=== PATIENT | female | born 1995 | race Hispanic/Latino ===

== ENCOUNTER 2017-08-28 22:18 | Emergency (ER) | payer OTHER ==
[2017-08-28] MEDS ORDERED: NA CHLORIDE 0.9% 1,000 ML ONE ×2 (22:48→23:01)
[2017-08-28 23:04] LABS: Absolute Lymphocytes (CBC) 3.8 K/uL (0.7-4.9); Absolute Monocytes 0.5 K/uL (0.1-1.3); Absolute Neutrophil 3.9 K/uL (1.8-8.0); Basophils % 0.4 % (0-1.3); Eosinophils % 1.4 % (0-4.4); Lymphocytes % 45.8 % (15.3-44.8); MCH 27.1 pg (27.0-35.0); MCV 80.5 fL (80-100); MPV 9.3 fL (7.6-11.3); Monocytes % 5.5 % (3.3-12.3); RBC Red Blood Cell Count 4.85 M/uL (3.86-4.86)
[2017-08-28 23:11] LABS: Bicarbonate 28 mEq/L (21-31); Glucose Level 102 mg/dL (65-120); Lipase 30 U/L (22-51); Potassium 3.7 mEq/L (3.6-5.0); Sodium Level 139 mEq/L (135-145)
[2017-08-28 23:18] LABS: ALT/SGPT 45 IU/L (10-60); AST/SGOT 32 IU/L (10-42); Albumin 4.2 g/dL (3.2-5.5); Alkaline Phosphatase 63 IU/L (42-121); Amylase Level 43 U/L (28-100); BUN Blood Urea Nitrogen 10 mg/dL (6-20); Bilirubin Direct < 0.1 mg/dL (0-0.2); Bilirubin Total 0.5 mg/dL (0.3-1.2); Protein, Total 7.6 g/dL (6.0-8.3)
[2017-08-28] MEDS ORDERED: ONDANSETRON 4 MG/2 ML VIAL ONE (23:19)
[2017-08-29 00:08] LABS: Urine Blood NEGATIVE (NEG); Urine Glucose NEGATIVE (NEG); Urine Protein NEGATIVE (NEG); Urine Specific Gravity 1.015 (1.005-1.030)
[2017-08-29 00:13] LABS: Urine Bacteria <20 /HPF (<20); Urine Culture Reflex Order NOT NEEDED; Urine RBC NONE SEEN /HPF (NONE SEEN)
--- NOTE | 2017-08-29 01:14 | EDPHYS ---
Physician Documentation [facility] Name: Valerie Murphy Age: 22 yrs Sex: Female : 1995 Arrival Date: 08/28/2017 Time: 22:19 Bed 6 Private MD: ED Physician Twin Moy HPI: 08/28 22:41 This 22 yrs old Female presents to ER via Ambulatory with complaints of pkl Abdominal Pain, Shortness Of Breath. 22:41 The patient presents with abdominal pain in the upper abdomen. Onset: The pkl symptoms/episode began/occurred 1 week(s) ago. The symptoms do not radiate. Associated signs and symptoms: Pertinent positives: chest pain, shortness of breath. Historical: - Allergies: 22:35 No Known Allergies; mg2 - Home Meds: 22:35 Albuterol Inhl [Active]; mg2 - PMHx: 22:35 Asthma; ADD/ADHD; mg2 - PSHx: 22:35 Tonsillectomy; mg2 - Immunization history:: Flu vaccine is not up to date. - Social history:: Smoking status: Patient/guardian denies using tobacco, Patient/guardian denies using alcohol, street drugs, IV drugs. - Ebola Screening: : No symptoms or risks identified at this time. ROS: 22:41 Eyes: Negative for injury, pain, redness, and discharge, ENT: Negative for injury, pkl pain, and discharge, Neck: Negative for injury, pain, and swelling. 22:41 Cardiovascular: Positive for chest pain. 22:41 Respiratory: Positive for shortness of breath. 22:41 Abdomen/GI: Positive for abdominal pain, Negative for abdominal pain, nausea, vomiting, and diarrhea. 22:41 Back: Negative for acute changes. 22:41 : Negative for urinary symptoms. 22:41 MS/extremity: Negative for acute changes. 22:41 Skin: Negative for rash. 22:41 Neuro: Negative for altered mental status. Exam: 22:41 Head/Face: Normocephalic, atraumatic. Eyes: Pupils equal round and reactive to light, pkl extra-ocular motions intact. Lids and lashes normal. Conjunctiva and sclera are non-icteric and not injected. Cornea within normal limits. Periorbital areas with no swelling, redness, or edema. ENT: Nares patent. No nasal discharge, no septal abnormalities noted. Tympanic membranes are normal and external auditory canals are clear. Oropharynx with no redness, swelling, or masses, exudates, or evidence of obstruction, uvula midline. Mucous membranes moist. Neck: Trachea midline, no thyromegaly or masses palpated, and no cervical lymphadenopathy. Supple, full range of motion without nuchal rigidity, or vertebral point tenderness. No Meningismus. Chest/axilla: Normal chest wall appearance and motion. Nontender with no deformity. No lesions are appreciated. Cardiovascular: Regular rate and rhythm with a normal S1 and S2. No gallops, murmurs, or rubs. Normal PMI, no JVD. No pulse deficits. Respiratory: Lungs have equal breath sounds bilaterally, clear to auscultation and percussion. No rales, rhonchi or wheezes noted. No increased work of breathing, no retractions or nasal flaring. 22:41 Abdomen/GI: Bowel sounds: normal, Palpation: soft, mild abdominal tenderness, in the right upper quadrant and left upper quadrant. 22:41 Back: Exam negative for acute changes. 22:41 : Exam negative for acute changes. 22:41 Musculoskeletal/extremity: Exam is negative for acute changes. 22:41 Skin: Exam negative for rash. 22:41 Neuro: Orientation: is normal, Mentation: is normal, Cranial nerves: grossly normal, Motor: is normal. Vital Signs: 22:36 BP 127 / 96; Pulse 88; Resp 18; Temp 97.1(O); Pulse Ox 98% on R/A; Weight 68.04 kg; mg2 Height 4 ft. 10 in. (147.32 cm); Pain 7/10; 23:35 BP 128 / 94; Pulse 82; Resp 16; Pulse Ox 99% on R/A; ao 08/29 01:00 BP 124 / 88; Pulse 72; Resp 18; Pulse Ox 100% ; ao 08/28 22:36 Body Mass Index 31.35 (68.04 kg, 147.32 cm) mg2 MDM: 08/28 22:35 Patient medically screened. pkl 08/29 01:13 Data reviewed: vital signs, nurses notes, lab test result(s), radiologic studies, CT pkl scan. 08/28 22:39 Order name: Amylase, Serum; Complete Time: 23:27 pkl 08/28 22:39 Order name: Basic Metabolic Panel; Complete Time: 23:27 pkl 08/28 22:39 Order name: CBC with Diff; Complete Time: 23:27 pkl 08/28 22:39 Order name: Creatinine for Radiology; Complete Time: 23:27 pkl 08/28 22:39 Order name: Hepatic Function; Complete Time: 23:27 pkl 08/28 22:39 Order name: Lipase; Complete Time: 23:27 pkl 08/28 22:39 Order name: Urine Microscopic Only; Complete Time: 01:11 pkl 08/28 22:39 Order name: IV Saline Lock; Complete Time: 22:54 pkl 08/28 22:39 Order name: Labs collected and sent; Complete Time: 22:54 pkl 08/28 23:05 Order name: Urine Dipstick--Ancillary (enter results) ms 08/28 23:05 Order name: Urine --Ancillary (enter results) ms 08/28 23:52 Order name: Chest Abdomen Pelvis W Cont [facility] 08/28 22:39 Order name: Urine Dipstick-Ancillary (obtain specimen); Complete Time: 23:34 pkl Administered Medications: 08/28 23:17 Drug: NS 0.9% 1000 ml Route: IV; Rate: 125 ml/hr; Site: right antecubital; mg2 Disposition: 08/29/17 01:14 Discharged to Home. Impression: Chest pain. Abdominal pain. - Condition is Stable. - Prescriptions for Protonix 40 mg Oral Tablet, Delayed Release (E.C.) - take 1 tablet by ORAL route once daily; 15 tablet. - Work release form, Medication Reconciliation Form, Thank You Letter, Antibiotic Education, Prescription Opioid Use form. - Follow up: Private Physician; When: 2 - 3 days; Reason: Re-evaluation by your physician. - Problem is new. - Symptoms have improved. Signatures: Dispatcher [employer] [facility] Twin Moy MD MD pkCarlos Rose RN RN Jordy Humphreys RN RN mg2 Corrections: (The following items were deleted from the chart) 23:52 23:29 Chest Abdomen W/ Con+CT.RAD.BRZ ordered. [facility] 08/29 01:29 01:14 08/29/2017 01:14 Discharged to Home. Impression: Chest pain. Abdominal pain. ao Condition is Stable. Forms are Medication Reconciliation Form, Thank You Letter, Antibiotic Education, Prescription Opioid Use. Follow up: Private Physician; When: 2 - 3 days; Reason: Re-evaluation by your physician. Problem is new. Symptoms have improved. pkl
--- NOTE | 2017-08-29 01:14 | ER ---
Nurse's Notes [facility] Name: Valerie Murphy Age: 22 yrs Sex: Female : 1995 Arrival Date: 08/28/2017 Time: 22:19 Bed 6 Private MD: Diagnosis: Chest pain. Abdominal pain Presentation: 08/28 22:32 Presenting complaint: Patient states: she has abdominal pain and orthopnea for 1 week. mg2 [facility] [address] in [place] previously and was prescribed some pain medications. She has been nauseous but denies vomiting. Transition of care: patient was not received from another setting of care. Onset of symptoms was August 2017. Risk Assessment: Do you want to hurt yourself or someone else? Patient reports no desire to harm self or others. Initial Sepsis Screen: Does the patient meet any 2 criteria? No. Patient's initial sepsis screen is negative. Does the patient have a suspected source of infection? No. Patient's initial sepsis screen is negative. Care prior to arrival: None. 22:32 Method Of Arrival: Ambulatory mg2 22:32 Acuity: YESI 3 mg2 Historical: - Allergies: 22:35 No Known Allergies; mg2 - Home Meds: 22:35 Albuterol Inhl [Active]; mg2 - PMHx: 22:35 Asthma; ADD/ADHD; mg2 - PSHx: 22:35 Tonsillectomy; mg2 - Immunization history:: Flu vaccine is not up to date. - Social history:: Smoking status: Patient/guardian denies using tobacco, Patient/guardian denies using alcohol, street drugs, IV drugs. - Ebola Screening: : No symptoms or risks identified at this time. Screenin:39 Abuse screen: Denies threats or abuse. Denies injuries from another. Nutritional mg2 screening: On. Tuberculosis screening: No symptoms or risk factors identified. Fall Risk None identified. Assessment: 22:37 General: Appears in no apparent distress. comfortable, Behavior is calm, cooperative. mg2 Pain: Complains of pain in left lower quadrant and epigastric Pain does not radiate. Pain currently is 7 out of 10 on a pain scale. Quality of pain is described as aching, Pain began gradually, 1 week ago Is intermittent. Neuro: Level of Consciousness is awake, alert, obeys commands, Oriented to person, place, time. Cardiovascular: Capillary refill < 3 seconds Patient's skin is warm and dry. Respiratory: Airway is patent Respiratory effort is even, unlabored, Respiratory pattern is regular, symmetrical. GI: Abdomen is non-distended, Reports lower abdominal pain, nausea. EENT: No signs and/or symptoms were reported regarding the EENT system. Derm: Skin is intact, Skin is pink, warm \T\ dry. normal. Musculoskeletal: No signs and/or symptoms reported regarding the musculoskeletal system. 23:42 Reassessment: Patient appears in no apparent distress at this time. Patient and/or ao family updated on plan of care and expected duration. Pain level reassessed. Patient is alert, oriented x 3, equal unlabored respirations, skin warm/dry/pink. Patient left for CT. 23:59 Reassessment: Patient back from CT. ao 08/29 01:27 GI: Bowel sounds present X 4 quads. Abd is soft and non tender X 4 quads. ao 01:28 Reassessment: Patient appears in no apparent distress at this time. Patient DC home ao ambulatory. patient agree with the POC and to follow up with PCP. No questions at this time. Vital Signs: 08/28 22:36 BP 127 / 96; Pulse 88; Resp 18; Temp 97.1(O); Pulse Ox 98% on R/A; Weight 68.04 kg; mg2 Height 4 ft. 10 in. (147.32 cm); Pain 7/10; 23:35 BP 128 / 94; Pulse 82; Resp 16; Pulse Ox 99% on R/A; ao 08/29 01:00 BP 124 / 88; Pulse 72; Resp 18; Pulse Ox 100% ; ao 08/28 22:36 Body Mass Index 31.35 (68.04 kg, 147.32 cm) mg2 ED Course: 08/28 22:19 Patient arrived in ED. es 22:31 Jordy Joiner, ADAM is Primary Nurse. mg2 22:34 Triage completed. mg2 22:35 Twin Moy MD is Attending Physician. pkl 22:36 Arm band placed on. mg2 22:54 Patient has correct armband on for positive identification. Pulse ox on. NIBP on. ao 22:54 Inserted saline lock: 20 gauge in right antecubital area, using aseptic technique. ao Blood collected. 23:56 Chest Abdomen Pelvis W Cont In Process Unspecified. EDMS 23:56 CT completed. Patient tolerated procedure well. Patient moved to NV via wheelchair. Patient moved back from NV. 08/29 01:27 No provider procedures requiring assistance completed. IV discontinued, intact, ao bleeding controlled, No redness/swelling at site. Pressure dressing applied. Administered Medications: 08/28 23:17 Drug: NS 0.9% 1000 ml Route: IV; Rate: 125 ml/hr; Site: right antecubital; mg2 Outcome: 08/29 01:14 Discharge ordered by . elza 01:27 Discharged to home ambulatory. ao 01:27 Condition: stable 01:27 Discharge instructions given to patient, Instructed on discharge instructions, follow up and referral plans. Demonstrated understanding of instructions, follow-up care, medications, Prescriptions given X 1. 01:29 Patient left the ED. ao Signatures: Dispatcher [employer] Twin Barrios MD MD pkl Salyer, Edna es Hagler, Ervin eh Ortiz, Alex RN RN Jordy Humphreys RN RN mg2
--- NOTE | 2017-08-29 08:43 | RAD REPORT ---
EXAM DESCRIPTION: CT - Chest Abdomen Pelvis W Cont - 08/29/2017 3:40 am CLINICAL HISTORY: Chest and abdominal pain with shortness of breath COMPARISON: CT chest July 29, 2016 TECHNIQUE: Computed axial tomography of the chest, abdomen and pelvis was obtained. 100 cc Isovue-30 0 was administered intravenously. Oral contrast was not requested. This limits evaluation of bowel.A preliminary report was generated by [employer] and reviewed prior to this dictation All CT scans are performed using dose optimization technique as appropriate and may include automated exposure control or mA/KV adjustment according to patient size. FINDINGS: A pleural effusion is not present. A pericardial effusion is not present. The lungs are clear No mediastinal or hilar lymphadenopathy is seen The liver is mildly enlarged. Spleen, pancreas, adrenals and kidneys appear unremarkable. The appendix is normal. There is no evidence of diverticulitis. An adnexal mass is not seen. A trace amount of free fluid in the pelvis probably is physiologic A tiny umbilical hernia is present IMPRESSION: Unremarkable CT chest Mild hepatomegaly
== END 2017-08-29 01:29 | disposition home or self-care (01) ==
LOC: ER 22:18
DX: R07.9 Chest pain, unspecified (principal); J45.909 Unspecified asthma, uncomplicated
CPT/HCPCS: 36415; 71260; 74177; 80048; 80076; 81003; 81015; 81025; 82150; 83690; 85025; 99284; J2405; J7030